=== PATIENT | female | born 1935 | race Caucasian/White ===

== ENCOUNTER 2019-11-26 14:30 | Outpatient (CLI) | payer MEDICARE, OTHER, SELFPAY ==
--- NOTE | 2019-11-26 14:42 | MM_ITS ---
WS: [id number] BILATERAL DIGITAL SCREENING MAMMOGRAPHY WITH CAD CLINICAL INFORMATION: SCREENING HISTORY: Screening mammogram. No current complaints. COMPARISON: None. TECHNIQUE: Bilateral CC and MLO views. FINDINGS: Scattered fibroglandular densities bilaterally. No suspicious focal mass, asymmetry, calcifications, or architectural distortion. No evidence of malignancy. Vascular calcifications. Secretory calcificat ions. Punctate calcifications. MM/[place] [id number] IMPRESSION: BI-RADS: 2-Benign FOLLOW UP: 1 Year Follow-up Recommend return to annual screening mammography.
== END 2019-11-26 14:31 | disposition home or self-care (01) ==
LOC: RADSHAW 14:41
PROVIDERS: PCP Family Medicine; Visit Provider Family Medicine
DX: Z12.31 Encounter for screening mammogram for malignant neoplasm of breast (principal)
CPT/HCPCS: 77067

== ENCOUNTER 2019-12-14 21:31 | Emergency (ER) | payer MEDICARE, OTHER, SELFPAY ==
--- NOTE | 2019-12-14 21:43 | XRR_ITS ---
PROCEDURE INFORMATION: Exam: XR Chest, 1 View Exam date and time: 12/14/2019 10:22 PM Age: 84 years old Clinical indication: Chest pain; Type not specified; Additional info: Cp TECHNIQUE: Imaging protocol: XR of the chest Views: 1 view. COMPARISON: CR Chest 2 views* [id number] 08/30/2018 11:57 AM FINDINGS: Lungs: Unchanged hyperinflation with mild fibrosis. The vascularity is within normal limits. No consolidation. Pleural space: Unremarkable. No pleural effusion. No pneumothorax. Heart/Mediastinum: Unremarkable. No cardiomegaly. Bones/joints: No acute abnormality. XR/XR chest 1V portable [id number] IMPRESSION: No acute findings.
--- NOTE | 2019-12-14 21:43 | ECG_ITS ---
[facility] Test Date: 2019-12-14 Pat Name: Yvette Goodman Department: Room: Gender: Female Night Monitor: : 1935 Requested By: Greg Olea Order Number: [id number] Vita MD: Christopher Hamilton M.D. Measurements Intervals [place] Rate: 59 P: 6 [place]: 200 QRS: -24 QRSD: 98 T: 44 QT: 411 QTc: 410 Interpretive Statements SINUS BRADYCARDIA POSSIBLE ANTERIOR MYOCARDIAL INFARCTION [30 ms Q WAVE IN V3/V4, OR R < 0.2 mV IN V4], OF INDETERMINATE AGE Compared to ECG 03/14/2016 14:53:27 Myocardial infarct finding now present Sinus rhythm no longer present Electronically Signed On 12-15-2019 18:11:00 CDT by Christopher Hamilton M.D. [id number]
[2019-12-14 21:45] VITALS: BP 152/82; PULSE 58; RESP 18; TEMP 36.7; O2SAT 96; BMI 33.2
[2019-12-14 22:12] LABS: Basophils % 0.7 %; Eosinophils # 0.4 10^3/uL (0.0-0.8); Eosinophils % 6.3 %; Hematocrit 40.4 % (37.0-47.0); Hemoglobin 13.4 g/dL (11.5-15.3); Lymphocytes # 1.9 10^3/uL (0.8-4.8); Lymphocytes % 33.7 %; Mean Corpuscular HGB Conc 33.2 g/dL (30.0-36.0); Mean Corpuscular Volume 96.4 fL (81-99); Mean Platelet Volume 10.3 fL (7.4-10.4); Monocytes # 0.5 10^3/uL (0.2-0.9); Monocytes % 8.5 %; Neutrophils # 2.81 10^3/uL (1.8-7.7); Neutrophils % 50.6 %; Nucleated Red Blood Cells % 0 %; Platelet Count 183 10^3/cmm (130-400); Red Blood Count 4.19 10^6/uL (4.1-5.3); Red Cell Distribution Width 12.2 % (12.1-15.1); White Blood Count 5.6 10^3/uL (4.0-10.0)
[2019-12-14 22:30] LABS: Troponin(5th) Baseline 10 ng/L (0-10)
[2019-12-14 22:39] LABS: Alanine Aminotransferase 11 U/L (0-33); Albumin Level 4.3 g/dL (3.5-5.2); Alkaline Phosphatase 65 IU/L (35-105); Anion Gap 14.3 (5-19); Aspartate Amino Transferase 22 U/L (0-32); Blood Urea Nitrogen 29 mg/dL (8-23); Calcium 9.8 mg/dL (8.5-10.5); Carbon Dioxide 28 mmol/L (22-29); Chloride 102 mmol/L (98-107); Glucose 109 mg/dL (65-115); NT Pro B Type Natriuretic Pept 314 pg/mL (0-450); Osmolality Calculated 288 mOsm/kg (285-295); Potassium 4.3 mmol/L (3.5-5.1); Sodium 140 mmol/L (136-145); Total Bilirubin 0.8 mg/dL (0.15-1.2); Total Protein 7.3 g/dL (6.6-8.7)
[2019-12-14 23:12] VITALS: BP 153/83; PULSE 53; RESP 12; O2SAT 94
--- NOTE | 2019-12-14 23:43 | ECG_ITS ---
[facility] Test Date: 2019-12-15 Pat Name: Yvette Goodman Department: Room: Gender: Female Tire Layer: : 1935 Requested By: Greg Olea Order Number: [id number] Vita MD: Christopher Hamilton M.D. Measurements Intervals [place] Rate: 52 P: 50 [place]: 207 QRS: -24 QRSD: 87 T: 48 QT: 428 QTc: 399 Interpretive Statements SINUS BRADYCARDIA LOW QRS VOLTAGE IN PRECORDIAL LEADS [QRS DEFLECTION < 1.0 mV IN CHEST LEADS] POSSIBLE ANTERIOR MYOCARDIAL INFARCTION , OF INDETERMINATE AGE [30 ms Q WAVE IN V3/V4, OR R < 0.2 mV IN V4] Compared to ECG 12/14/2019 21:49:46 Low QRS voltage now present Myocardial infarct finding still present Electronically Signed On 12-15-2019 18:14:51 CDT by Christopher Hamilton M.D. [id number]
[2019-12-15 00:21] LABS: D Dimer 0.42 ug/mIFEU (0-0.59)
[2019-12-15 00:24] LABS: Troponin 5 2HR 9.27 ng/L (0-10)
[2019-12-15 00:31] LABS: Troponin 5 2HR Delta -0.73 ABS# (0-10)
[2019-12-15 00:57] VITALS: BP 160/79; PULSE 59; RESP 16; TEMP 37; O2SAT 98
[2019-12-15 01:20] VITALS: BP 126/71; PULSE 57; RESP 16; O2SAT 100
--- NOTE | 2019-12-15 17:45 | ED_ITS ---
HPI - Chest Pain General: Chief Complaint: Chest Pain Stated Complaint: pressure in chest/ little sharp pain Time Seen by Provider: 12/14/19 22:25 History of Present Illness: HPI narrative: 84-year-old female with a history of PE, on Xarelto, presents with intermittent chest pain to the substernal and left chest. It is somewhat reproducible, but not really she is not had much shortness of breath. No significant cough or fever. She does not have a history of coronary disease, but relates a strong family history of heart disease in general. MD complaint: chest pain Pertinent past history: other (HTN, PE) Onset (ago): hour(s) Timing of current episode: episodic Prior episodes: Yes Onset: during rest Pain location: substernal and left chest Pain radiation: none Severity: moderate Quality: sharp Relieving factors: nothing Exacerbating factors: nothing Associated symptoms: Reports dyspnea (mild on and off); Deny fever(s), leg edema, syncope or vomiting Treatment prior to arrival: none Review of Systems Const: Denies: fever(s) Eyes: Denies: change in vision ENMT: Denies: swelling of lips/tongue, post nasal drip or sinus pain Card: Denies: syncope Resp: Reports: dyspnea (mild on and off) GI: Denies: vomiting : Denies: dysuria or hematuria Musc: Denies: neck pain, joint redness or joint warmth Skin/Breast: Denies: rash, pruritus or erythema Neuro: Denies: headache(s) or seizure-like activity Psych: Denies: anxiety Physical Exam Const: GENERAL APPEARANCE: well developed ORIENTATION/CONSCIOUSNESS: Yes oriented to person, Yes oriented to place and Yes oriented to time HENMT: COMMON NORMALS: normocephalic, external ears normal and Normal external nose present HEAD & SCALP: normocephalic FACE & SINUS: normal facial exam NOSE: Normal external nose present and No nasal discharge present EXTERNAL EAR: Yes external ears normal Eye: COMMON NORMALS: Equal, round and reactive pupils present, EOMs intact bilaterally and conjunctivae normal EYELID: eyelids normal CONJUNCTIVA: Yes conjunctivae normal PUPIL: Yes Equal, round and reactive pupils present Neck/C-Spine: COMMON NORMALS: full ROM GENERAL: No tracheal deviation Chest: COMMONS NORMALS: normal inspection of the chest CHEST: No tenderness Resp: COMMON NORMALS: clear to auscultation bilaterally EFFORT & INSPECTION: No tachypneic, No respiratory distress, No retractions, No uses accessory muscles and No tracheal deviation AUSCULTATION: clear to auscultation bilaterally, no rhonchi, no wheezes and lung sounds not diminished Cardio: COMMON NORMALS: regular rate and regular rhythm RATE: regular rate RHYTHM: regular rhythm HEART SOUNDS: no murmurs PERIPHERAL PULSES: radial pulses present GI: INSPECTION: No abdominal distension AUSCULTATION: No Hyperactive bowel sounds present and No Hypoactive bowel sounds present PALPATION: No Guarding due to palpation present (GI) and No Rigid due to palpation PERCUSSION: no dullness to percussion and no tympanic to percussion Neuro: SENSORIUM/ORIENTATION: Yes oriented to person, Yes oriented to place and Yes oriented to time Psych: COMMON NORMALS: mental status grossly normal Skin: COMMON NORMALS: no rashes or lesions noted GENERAL SKIN EXAM: no rashes or lesions noted Course Vital Signs: Vital signs: Vital Signs Temperature 98.6 F 12/15/19 00:57 Pulse Rate 57 L 12/15/19 01:20 Respiratory Rate 16 12/15/19 01:20 Blood Pressure 126/71 12/15/19 01:20 Pulse Oximetry 100 12/15/19 01:20 MDM - Chest Pain MDM Narrative: Medical decision making narrative: 84-year-old lady with intermittent sharpish chest pain. She has no prior history of coronary disease. She does have hypertension. She has a history of PE, and is on anticoagulants. She has been taking them faithfully. She does have some renal insufficiency. Her EKG showed no ST changes. Her troponin did not elevate at 2 hours. Her pain was essentially resolved. This was without treatment. She is not hypoxic and non-tachycardic her d-dimer was negative. With improvement in her pain, her being already treated for PE, and no elevation in her troponin, and think she can go home she knows to return for any return of her symptoms. Lab Data: Labs: Lab Results 12/14/19 12/14/19 12/14/19 Range/Units 22:03 22:03 22:03 WBC 5.6 (4.0-10.0) 10^3/ uL RBC 4.19 (4.1-5.3) 10^6/u L Hgb 13.4 (11.5-15.3) g/dL Hct 40.4 (37.0-47.0) % MCV 96.4 (81-99) fL MCH 32.0 (28.0-34.0) pg MCHC 33.2 (30.0-36.0) g/dL RDW 12.2 (12.1-15.1) % Plt Count 183 (130-400) 10^3/c mm MPV 10.3 (7.4-10.4) fL Neut % (Auto) 50.6 % Lymph % (Auto) 33.7 % [place] % (Auto) 8.5 % Eos % (Auto) 6.3 % Baso % (Auto) 0.7 % Neut # (Auto) 2.81 (1.8-7.7) 10^3/u L Lymph # (Auto) 1.9 (0.8-4.8) 10^3/u L [place] # (Auto) 0.5 (0.2-0.9) 10^3/u L Eos # (Auto) 0.4 (0.0-0.8) 10^3/u L Baso # (Auto) 0.0 (0.0-0.1) 10^3/u L Nucleated RBC % (a uto) 0 % Nucleated RBCs # 0.0 /100WBC D-Dimer (0-0.59) ug/mIFE U Sodium 140 (136-145) mmol/L Potassium 4.3 (3.5-5.1) mmol/L Chloride 102 (98-107) mmol/L Carbon Dioxide 28 (22-29) mmol/L Anion Gap 14.3 (5-19) BUN 29 H (8-23) mg/dL Creatinine 1.6 H (0.5-0.9) mg/dL GFR Calculation Not Reportable Glucose 109 (65-115) mg/dL Calculated Osmolal ity 288 (285-295) mOsm/k g Calcium 9.8 (8.5-10.5) mg/dL Total Bilirubin 0.8 (0.15-1.2) mg/dL AST 22 (0-32) U/L ALT 11 (0-33) U/L Alkaline Phosphata se 65 (35-105) IU/L Troponin T Baselin e 10 (0-10) ng/L Troponin T 120 Min [place] (0-10) ng/L Delta Troponin T (0-10) ABS# NT-Pro-B Natriuret Pep 314 (0-450) pg/mL Total Protein 7.3 (6.6-8.7) g/dL Albumin 4.3 (3.5-5.2) g/dL Globulin 3.0 (1.3-4.6) g/dL 12/14/19 12/14/19 Range/Units 22:03 23:59 WBC (4.0-10.0) 10^3/ uL RBC (4.1-5.3) 10^6/u L Hgb (11.5-15.3) g/dL Hct (37.0-47.0) % MCV (81-99) fL MCH (28.0-34.0) pg MCHC (30.0-36.0) g/dL RDW (12.1-15.1) % Plt Count (130-400) 10^3/c mm MPV (7.4-10.4) fL Neut % (Auto) % Lymph % (Auto) % [place] % (Auto) % Eos % (Auto) % Baso % (Auto) % Neut # (Auto) (1.8-7.7) 10^3/u L Lymph # (Auto) (0.8-4.8) 10^3/u L [place] # (Auto) (0.2-0.9) 10^3/u L Eos # (Auto) (0.0-0.8) 10^3/u L Baso # (Auto) (0.0-0.1) 10^3/u L Nucleated RBC % (a uto) % Nucleated RBCs # /100WBC D-Dimer 0.42 (0-0.59) ug/mIFE U Sodium (136-145) mmol/L Potassium (3.5-5.1) mmol/L Chloride (98-107) mmol/L Carbon Dioxide (22-29) mmol/L Anion Gap (5-19) BUN (8-23) mg/dL Creatinine (0.5-0.9) mg/dL GFR Calculation Glucose (65-115) mg/dL Calculated Osmolal ity (285-295) mOsm/k g Calcium (8.5-10.5) mg/dL Total Bilirubin (0.15-1.2) mg/dL AST (0-32) U/L ALT (0-33) U/L Alkaline Phosphata se (35-105) IU/L Troponin T Baselin e (0-10) ng/L Troponin T 120 Min [place] 9.27 (0-10) ng/L Delta Troponin T -0.73 L (0-10) ABS# NT-Pro-B Natriuret Pep (0-450) pg/mL Total Protein (6.6-8.7) g/dL Albumin (3.5-5.2) g/dL Globulin (1.3-4.6) g/dL Discharge Plan Discharge Patient Disposition: Home Clinical Impression: Chest pain Qualifiers: Chest pain type: unspecified Qualified Code(s): R07.9 - Chest pain, unspecified Condition: Stable Discharge Orders: Discharge Order (Routine); Ordered 12/15/19 Ordered By: Greg Atkinson Referrals: Miguel Samayoa Jr, MD [Primary Care Provider] - 1-3 days Discharge Diet: Advance as tolerated Discharge Activity: Increase activity as tolerated Patient Instructions: Chest Pain (ED) Activity Restrictions/Additional Instructions: Return for repeated episodes of chest pain, worsening shortness of breath, cough, fever, sputum production, other concerning symptoms. See your doctor the beginning of this week. There may be additional tests they wish performed. Discharge Date/Time: 12/15/19 01:22 Coding Level of Care Code ED Astro Technician for Radha Barr
== END 2019-12-15 01:22 | disposition home or self-care (01) ==
PROVIDERS: Emergency Provider Emergency Medicine; PCP Family Medicine
DX: R07.9 Chest pain, unspecified (principal)
CPT/HCPCS: 12345; 36415; 71045; 80053; 83880; 84484; 85025; 85378; 93005; 99283; 99284

== ENCOUNTER 2020-05-27 12:19 | Outpatient (CLI) | payer MEDICARE, OTHER, SELFPAY ==
[2020-05-27] MEDS: iohexol 300 mg/mL 50 mL Btl PO (12:33)
--- NOTE | 2020-05-27 14:00 | CT_ITS ---
WS: [id number] CT PELVIS WITH CONTRAST. HISTORY: K62.89 - Other specified diseases of anus and rectum TECHNIQUE: Contiguous imaging is performed of the pelvis with contrast. Coronal and sagittal reformat s are reviewed. All CT scans at [facility] use at least one of these dose optimization te chniques: automated exposure control; mA and/or kV adjustment per patient size (includes targeted exa ms where dose is matched to clinical indication); or iterative reconstruction. DLP: 1553.3 mGycm Contrast: Visipaque 95 cc IV. COMPARISON: None available. Moderate atherosclerotic plaque within the infrarenal aorta to the iliac arteries. No adenopathy is i dentified. There is a very small shoddy periaortic lymph nodes. Moderate fecal retention. Extensive diverticular disease within the descending and sigmoid colon. At the level of the rectum there is increased soft tissue extending towards the anus. Increased soft tis edvin towards the anus measures 4.4 x 4.7 cm. There is an additional soft tissue nodule in the LEFT per ineum measuring 1.6 cm. No adjacent adenopathy or fluid. There is no obstruction. CT/CT pelvis w con* [id number] IMPRESSION: 1. Increased soft tissue towards the anus and perineum. This should be visuall y apparent. Increased soft tissue along the posterior rectum and anus and exten ding into the perineum. Cannot exclude neoplasm. 2. No ascites or adenopathy. 3. Extensive diverticular disease in the distal and sigmoid colon.
[2020-05-27 14:06] LABS: Blood Urea Nitrogen 26 mg/dL (8-23)
[2020-05-27] MEDS: iodixanol 320 mg/mL 100mL Btl IV (14:14)
== END 2020-05-27 12:20 | disposition home or self-care (01) ==
LOC: RADWPI 12:24
PROVIDERS: PCP Family Medicine; Visit Provider Surgery
DX: K62.89 Other specified diseases of anus and rectum (principal); K57.90 Diverticulosis of intestine, part unspecified, without perforation or abscess without bleeding
CPT/HCPCS: 72193; 82565; 84520; Q9967

== ENCOUNTER → 2020-06-04 11:51 | Outpatient (BNVA) | payer MEDICARE, OTHER, SELFPAY | PROVIDERS: PCP Family Medicine; Visit Provider Surgery | DX: K57.90 Diverticulosis of intestine, part unspecified, without perforation or abscess without bleeding (principal) | CPT/HCPCS: 87635 ==

== ENCOUNTER 2020-06-09 10:31 | Day surgery (SDC) | payer MEDICARE, OTHER, SELFPAY ==
[2020-06-08 13:46] VITALS: BMI 34.5
[2020-06-09 11:00] VITALS: BP 157/79; PULSE 69; RESP 18; TEMP 36.6; O2SAT 98
[2020-06-09] MEDS: sodium chloride 0.9% 1,000 ML 30 ML IV (11:03)
--- NOTE | 2020-06-09 12:18 | W.PM.OPSUD ---
Surgery/Procedure H&P Update DATE OF PROCEDURE: June 09, 2020 DATE H&P PERFORMED: 05/25/20 H&P UPDATE INFORMATION: I have reviewed H&P completed within last 30 days, I have examined patient prior to procedure and No changes to prior documentation PREOP DIAGNOSIS: diagnostic PLANNED PROCEDURE: Operation Date: 06/09/20 11:30 Proposed Procedures p flex Sigmoidoscopy 60260 K57.90(Not Applicable) - John Esquivel MD
--- NOTE | 2020-06-09 12:48 | W.PM.OPSUD ---
Surgery/Procedure H&P Update DATE OF PROCEDURE: June 09, 2020 DATE H&P PERFORMED: 05/25/20 H&P UPDATE INFORMATION: I have reviewed H&P completed within last 30 days, I have examined patient prior to procedure and No changes to prior documentation PREOP DIAGNOSIS: diagnostic PLANNED PROCEDURE: Operation Date: 06/09/20 11:30 Proposed Procedures p flex Sigmoidoscopy 50889 K57.90(Not Applicable) - John Esquivel MD
[2020-06-09 13:08] VITALS: BP 116/61; PULSE 64; RESP 16; TEMP 36.2; O2SAT 98
--- NOTE | 2020-06-09 13:23 | ANES.PREANE2 ---
Pre-Anesthetic Assessment Pre-Anesthetic Assessment: Height/Weight: Height 1.52 m Weight 80.286 kg Temp Pulse Resp BP Pulse Ox 97.1 F L 64 16 116/61 98 06/09/20 13:08 06/09/20 13:08 06/09/20 13:08 06/09/20 13:08 06/09/20 13:08 Preop Diagnosis: diagnostic Proposed Procedure: Operation Date: 06/09/20 11:30 Proposed Procedures p flex Sigmoidoscopy 71759 K57.90(Not Applicable) - John Esquivel MD Was Beta Juan taken within 24 hours: Yes Last intake: Intake Last Liquid Date 06/08/20 Last Liquid Time 21:00 Last Solid Date 06/07/20 Last Solid Time 20:00 Social: Social History: No alcohol and No tobacco Exam: Pre-Anes Outpt Exam: alert, oriented x 3, clear to auscultation bilaterally and regular rate & rhythm Airway: Submandibular: WNL Cervical ROM: WNL MP: 2 Dentition: False CV/HEM: CV/HEM: DVT (PE) Metabolic: Metabolic: Morbid obesity and Thyroid Neuropsych: Neuropsych: Depression Anesthetic Plan: ASA status: 3 Anesthesia: MAC Risk of > 500 ml blood loss (7ml/kg in children): No Meds/Allergies Current Medications: Current Medications Generic Name Dose Route Start Last Admin Trade Name Freq PRN Reason Stop Dose Admin Sodium Chloride 1,000 mls @ 30 ml s/hr 06/09/20 10:45 06/09/20 11:03 Sodium Chloride 0.9% IV 06/10/20 10:44 30 mls/hr .Q24H VERITO Administration PFSH Anesthesia PFSH: Medical History (Updated 05/25/20 @ 11:13 by John Esquivel MD) Depression Diverticulosis History of pulmonary embolism Hyperlipidemia Hypertension Hypothyroidism Surgical History (Updated 05/25/20 @ 11:13 by John Esquivel MD) History of hysterectomy Status post colonoscopy (~2019) Social History Smoking and tobacco status: never smoked Alcohol intake: never Special era needs: No Data Anesthesia Cardiac Studies: No Data to Display
[2020-06-09 13:35] VITALS: BP 139/77; PULSE 60; RESP 16; O2SAT 98
--- NOTE | 2020-06-09 16:36 | ANE.PACU2 ---
Inpatient post-anesthesia follow up: Airway intact: Yes Vital signs: Temperature 97.1 F Pulse Rate 60 Respiratory Rate 16 Blood Pressure 139/77 Pulse Oximetry 98 Oxygen Delivery Me thod Room Air Oxygen Flow Rate Fraction of Inspir ed Oxygen Hydration adequate: Yes Nausea and vomiting: No Pain level: 1 Mental status: Baseline
== END 2020-06-09 13:50 | disposition home or self-care (01) ==
PROVIDERS: PCP Family Medicine; Visit Provider Surgery
PROC: 0DJD8ZZ Inspection of Lower Intestinal Tract, Via Natural or Artificial Opening Endoscopic (ICD-10-PCS; CPT 45330; principal; 2020-06-09 11:30)
DX: K62.89 Other specified diseases of anus and rectum (principal); K57.30 Diverticulosis of large intestine without perforation or abscess without bleeding; K64.8 Other hemorrhoids; F32.9 Major depressive disorder, single episode, unspecified; E78.5 Hyperlipidemia, unspecified; I10 Essential (primary) hypertension; E03.9 Hypothyroidism, unspecified; Z86.718 Personal history of other venous thrombosis and embolism; E66.01 Morbid (severe) obesity due to excess calories; Z68.34 Body mass index [BMI] 34.0-34.9, adult
CPT/HCPCS: 12345; 45330; J2704; J7030

== ENCOUNTER 2021-08-20 09:23 | Outpatient (CLI) | payer MEDICARE, OTHER, SELFPAY ==
--- NOTE | 2021-08-20 09:45 | MM_ITS ---
WS: [id number] BILATERAL SCREENING 3D TOMOSYNTHESIS DIGITAL MAMMOGRAM WITH CAD HISTORY: SCREENING COMPARISON: 11/26/2019 and 06/18/2018 Bilateral CC and MLO views submitted. Limited evaluation RIGHT breast. Pectoralis muscle not included in the MLO projection. Computer aided detection analyzed. Breast composition: There are scattered areas of fibroglandular density. No suspicious masses, microc alcifications or architectural distortion. Benign calcifications in each breast. MM/[place] [id number] IMPRESSION: BI-RADS: 2-Benign FOLLOW UP: 1 Year Follow-up
== END 2021-08-20 09:24 | disposition home or self-care (01) ==
LOC: RAD 09:41
PROVIDERS: PCP Family Medicine; Visit Provider Family Medicine
DX: Z12.31 Encounter for screening mammogram for malignant neoplasm of breast (principal)
CPT/HCPCS: 77063; 77067

== ENCOUNTER 2021-12-06 11:55 | Outpatient (CLI) | payer MEDICARE, OTHER, SELFPAY ==
--- NOTE | 2021-12-06 11:45 | USCV_ITS ---
Yvette Goodman Age: 86 Gender: F : 1935 Exam Date: 12/06/2021 12:50 Ordering Phys: Otis Torres DO Technologist: ANGEL [place] [facility] [place]: systolic BP: 128 / 78 HR: 65 Rhythm: Sinus Technical Quality: Adequate MEASUREMENTS (Male / Female) Normal Values 2D ECHO LV Diastolic Diameter PLAX 4.2 cm 4.2 - 5.9 / 3.9 - 5.3 cm LV Systolic Diameter PLAX 2.5 cm IVS Diastolic Thickness 1.3 cm 0.6 - 1.0 / 0.6 - 0.9 cm IVS Systolic Thickness 1.6 cm LVPW Diastolic Thickness 1.2 cm 0.6 - 1.0 / 0.6 - 0.9 cm LVPW Systolic Thickness 1.8 cm LVOT Diameter 2.1 cm LV Ejection Fraction 2D Teich 72.3 % LV Ejection Fraction MOD 2C 47.9 % LV Ejection Fraction 2C AL 49.0 % LA Diameter 3.4 cm LA Width 3.2 cm LA Height 4.2 cm RA Width 3.4 cm RA Height 4.2 cm Aorta at Sinotubular Diameter 3.2 cm IVC Diameter 1.9 cm M-MODE MV E Point Septal Separation 0.3 cm DOPPLER AV Peak Velocity 116.0 cm/s LVOT Peak Velocity 107.0 cm/s AV Area Cont Eq vti 2.9 cm squared AV Area Cont Eq pk 3.2 cm squared MV Peak Velocity 142.0 cm/s MV Area PHT 4.3 cm squared Mitral E to A Ratio 0.7 MV E' Velocity 39.5 cm/s Mitral E to MV E' Ratio 9.1 Mitral E to LV E' Lateral Ratio 10.4 Mitral E to LV E' Septal Ratio 8.2 TR Peak Velocity 247.3 cm/s TR Peak Gradient 24.5 mmHg Right Atrial Pressure 3.0 mmHg Pulmonary Artery Systolic Pressu 27.5 mmHg PV Peak Velocity 76.0 cm/s RV Acceleration Time 0.1 s RV Ejection Time 0.4 s RV AcT/ET 0.3 FINDINGS Left Ventricle Normal left ventricular size. LV systolic function is normal with EF of 55-60%. No regional wall motion abnormalities. Grade 1 diastolic dysfunction. Right Ventricle The right ventricle is normal in size and function. Right Atrium The right atrium is normal in size. Normal RA pressure. Left Atrium The left atrium is normal in size. Mitral Valve Mild mitral annular calcification is seen. Mild mitral regurgitation. Aortic Valve Structurally normal aortic valve without significant sclerosis or stenosis. There is no aortic regurgitation. Tricuspid Valve Mild tricuspid regurgitation. Normal pulmonary artery systolic pressure. Pulmonic Valve Not well-visualized. Pericardium Normal pericardium without effusion. Aorta Normal ascending aorta dimension. IVC CONCLUSIONS LV systolic function is normal with EF 55 to 60%. Grade 1 diastolic dysfunction. Mild mitral annular calcification is seen. Mild mitral regurgitation. Mild tricuspid regurgitation. No comparison studies are available Bam Posada MD (Electronically Signed) Final Date: 11 December 2021 13:32 S
== END 2021-12-06 11:56 | disposition home or self-care (01) ==
PROVIDERS: PCP Family Medicine; Visit Provider Electrodiagnostic Medicine
DX: R01.1 Cardiac murmur, unspecified (principal); I08.1 Rheumatic disorders of both mitral and tricuspid valves
CPT/HCPCS: 93306

== ENCOUNTER 2022-12-28 15:09 | Outpatient (CLI) | payer MEDICARE, SELFPAY ==
--- NOTE | 2022-12-28 15:17 | MM_ITS ---
WS: [id number] SCREENING DIGITAL BREAST TOMOSYNTHESIS MAMMOGRAM WITH CAD HISTORY: SCREENING COMPARISON: 08/20/2021 and 11/26/2019 and 06/18/2018 Bilateral CC and MLO with tomosynthesis and synthetic mammography submitted. Computer aided detection analyzed. Breast composition: There are scattered areas of fibroglandular density. Scattered breast arterial ca lcifications and benign round calcifications within each breast Well-circumscribed 9 mm dense mass noted in the LEFT axillary tail. This was present on the prior ronal dies and thought to be a lymph node but has slightly increased in size with loss of the normal fatty hilum. This needs to be evaluated further. IMPRESSION: MM/[place] [id number] BI-RADS: 0-Incomplete: Need additional imaging evaluation FOLLOW UP: Need Additional Imaging Recommendation: LEFT breast ultrasound limited to the axillary tail. Favor this is probably within the axillary tail. Cannot localize on the CC projection due to its posterior position. We'll attempt to identify by ultrasound. May need a dditional mammographic imaging if we cannot visualize by ultrasound.
== END 2022-12-28 15:10 | disposition home or self-care (01) ==
LOC: RAD 15:13 → MOBLMAM 15:16 → RAD 15:17
PROVIDERS: PCP Family Medicine; Visit Provider Electrodiagnostic Medicine
DX: Z12.31 Encounter for screening mammogram for malignant neoplasm of breast (principal)
CPT/HCPCS: 77063; 77067

== ENCOUNTER 2023-01-31 10:10 | Outpatient (CLI) | payer MEDICARE, OTHER, SELFPAY ==
--- NOTE | 2023-01-31 10:22 | US_ITS ---
WS: [id number] ULTRASOUND LEFT BREAST HISTORY: ABNORMAL MAMMO COMPARISON: 12/28/2022 TECHNIQUE: 2-D and Doppler. High density nodule seen on mammography in the LEFT axillary tail is identified by ultrasound. This n odule is hypoechoic with mildly heterogeneous contents measuring 9 x 10 x 8 mm. There is minimal thro ugh transmission. I suspect there is probably a tract extending through the subcutaneous soft tissue. Due to the ultrasound appearance this is probably a sebaceous cyst or epidermoid. Does not have the appearance of a lymph node. IMPRESSION: US/US breast LT limited* [id number] BI-RADS: 3-Probably Benign FOLLOW-UP: 6 Month Follow-up Well-circumscribed hypoechoic in the LEFT axillary tail is identified also by u ltrasound. This is most likely an epidermoid or sebaceous cyst. Does not have a typical appearance for a lymph node. Typically epidermoid or sebaceous cyst or not biopsied due to the significant inflammatory reaction they may in site. Vizcarra ggest 6-month ultrasound follow-up. If this nodule becomes larger in size prior to 6 months or becomes palpable ultrasound can be obtained earlier.
== END 2023-01-31 10:11 | disposition home or self-care (01) ==
PROVIDERS: PCP Electrodiagnostic Medicine; Visit Provider Electrodiagnostic Medicine
DX: R92.8 Other abnormal and inconclusive findings on diagnostic imaging of breast (principal)
CPT/HCPCS: 76642

== ENCOUNTER → 2023-02-21 09:01 | Outpatient (BNVA) | payer MEDICARE, OTHER, SELFPAY | PROVIDERS: PCP Electrodiagnostic Medicine; Visit Provider Podiatrist Foot & Ankle Surgery | DX: L60.3 Nail dystrophy (principal); M20.41 Other hammer toe(s) (acquired), right foot; M20.42 Other hammer toe(s) (acquired), left foot; I73.9 Peripheral vascular disease, unspecified | CPT/HCPCS: 11721; 99203 ==

== ENCOUNTER 2023-03-28 20:00 | Outpatient (CLI) | payer MEDICARE, OTHER, SELFPAY | END 2023-03-28 20:01 | disposition home or self-care (01) | LOC: SLEEP 03-29 05:24 | PROVIDERS: PCP Electrodiagnostic Medicine; Visit Provider Electrodiagnostic Medicine | DX: G47.33 Obstructive sleep apnea (adult) (pediatric) (principal) | CPT/HCPCS: 95810 ==

== ENCOUNTER 2023-05-24 15:14 | Outpatient (CLI) | payer MEDICARE, OTHER, SELFPAY ==
--- NOTE | 2023-05-24 15:21 | XR_ITS ---
WS: [id number] DEXA (DUAL ENERGY X-RAY ABSORPTIOMETRY) Bone mineral density was performed using a [employer] machine. HISTORY: POSTMENOPAUSAL COMPARISON: None available. Lumbar spine BMD (L1-L4): 1.390 T score: 1.6 Z score: 3.2 Total hip BMD: Left: 0.986 g/cm2. T score: -0.2 Z score: 1.9 Right: 0.911 g/cm2. T score: -0.8 Z score: 1.3 10 year probability of a major osteoporotic fracture is 17.7%. IMPRESSION: NORMAL BONE MINERAL DENSITY based upon the WHO classification for females.
== END 2023-05-24 15:15 | disposition home or self-care (01) ==
LOC: RAD 15:15
PROVIDERS: PCP Electrodiagnostic Medicine; Visit Provider Electrodiagnostic Medicine
DX: Z78.0 Asymptomatic menopausal state (principal)
CPT/HCPCS: 77080

== ENCOUNTER → 2023-05-31 08:05 | Outpatient (BNVA) | payer MEDICARE, OTHER, SELFPAY | PROVIDERS: PCP Electrodiagnostic Medicine; Visit Provider Podiatrist Foot & Ankle Surgery | DX: L60.3 Nail dystrophy (principal); I73.9 Peripheral vascular disease, unspecified; L84 Corns and callosities | CPT/HCPCS: 11055; 11721 ==

== ENCOUNTER 2023-07-10 14:00 | Emergency (ER) | payer MEDICARE, OTHER, SELFPAY ==
[2023-07-10 14:10] VITALS: BP 190/100; PULSE 78; RESP 18; TEMP 36.7; O2SAT 97; BMI 33.2
--- NOTE | 2023-07-10 17:14 | XRR_ITS ---
PROCEDURE INFORMATION: Exam: XR Chest Exam date and time: 07/10/2023 5:58 PM Age: 88 years old Clinical indication: Chest wall pain; Additional info: HTN TECHNIQUE: Imaging protocol: Radiologic exam of the chest. Views: 1 view. COMPARISON: CR XR chest 1V portable [id number] 12/14/2019 10:10 PM FINDINGS: Lungs: Unremarkable. No consolidation or mass. Pleural spaces: Unremarkable. No pleural effusion. No pneumothorax. Heart/Mediastinum: Unremarkable. No cardiomegaly. Bones/joints: Unremarkable. XR/XR chest 1V portable [id number] IMPRESSION: No acute findings.
--- NOTE | 2023-07-10 17:54 | ECG_ITS ---
[facility] Test Date: 2023-07-10 Pat Name: Yvette Goodman Department: Room: Gender: Female Traffic Safety Administrator: : 1935 Requested By: Denys Moe Order Number: [id number] Vita MD: Tobias Mcintyre M.D. Measurements Intervals [place] Rate: 64 P: 46 MD: 187 QRS: -24 QRSD: 89 T: 17 QT: 397 QTc: 411 Interpretive Statements SINUS RHYTHM WITH OCCASIONAL SUPRAVENTRICULAR PREMATURE COMPLEXES LOW QRS VOLTAGE IN PRECORDIAL LEADS [QRS DEFLECTION < 1.0 mV IN CHEST LEADS] POSSIBLE ANTERIOR MYOCARDIAL INFARCTION , OF INDETERMINATE AGE [30 ms Q WAVE IN V3/V4, OR R < 0.2 mV IN V4] Compared to ECG 12/15/2019 00:05:00 Sinus bradycardia no longer present Myocardial infarct finding still present Electronically Signed On 07-11-2023 23:00:04 CDT by Tobias Mcintyre M.D. [id number]
[2023-07-10 18:37] VITALS: BP 207/108; PULSE 87; RESP 16; O2SAT 97
[2023-07-10 18:39] LABS: Basophils % 0.5 %; Eosinophils # 0.4 10^3/uL (0.0-0.8); Eosinophils % 6.5 %; Lymphocytes # 1.8 10^3/uL (0.8-4.8); Lymphocytes % 27.8 %; Mean Corpuscular HGB Conc 33.3 g/dL (30-55); Mean Corpuscular Hemoglobin 32.8 pg (27-33); Mean Corpuscular Volume 98.5 fl (85-98); Mean Platelet Volume 10.5 fL (7.4-10.4); Monocytes # 0.5 10^3/uL (0.2-0.9); Monocytes % 8.3 %; Neutrophils # 3.68 10^3/uL (1.8-7.7); Neutrophils % 56.4 %; Nucleated Red Blood Cells % 0 %; Platelet Count 173 10^3/cmm (157-399); Red Blood Count 3.96 10^6/uL (3.85-5.65); Red Cell Distribution Width 12.2 % (12.1-15.1); White Blood Count 6.51 10^3/uL (3.29-11.43)
[2023-07-10 18:42] LABS: Add Urine Microscopic? NO; Charge for UA Resulting for Rev
[2023-07-10 18:51] LABS: Bilirubin Urine Neg (Negative); Blood Urine Neg (Negative); Glucose Urine UA Norm (Normal); Ketones Urine Negative (Negative); Leukocyte Esterase Urine Negative (Negative); Nitrate Urine Negative (Negative); Protein Urine Neg (Negative); Sulfosalicylic Acid Urine Negative (Negative); Urine Appearance Clear (CLEAR); Urine Color Light yellow (Yellow); Urobilinogen Urine Norm (Negative); pH Urine 8 (5-7)
[2023-07-10 19:05] VITALS: BP 169/90; PULSE 73; RESP 18; O2SAT 97
[2023-07-10 19:17] LABS: Alanine Aminotransferase 14 U/L (0-33); Albumin Level 3.8 g/dL (3.5-5.2); Alkaline Phosphatase 83 U/L (35-105); Anion Gap 16.3 (5-19); Aspartate Amino Transferase 24 U/L (0-32); Blood Urea Nitrogen 22 mg/dL (8-23); Calcium 9.7 mg/dL (8.5-10.5); Carbon Dioxide 27 mmol/L (22-29); Chloride 103 mmol/L (98-107); Creatinine Clr Calc Pharmacy 30.3172; Globulin 3.2 g/dL (1.3-4.6); Glucose 96 mg/dL (65-115); Osmolality Calculated 297 mOsm/kg (285-295); Potassium 4.3 mmol/L (3.5-5.1); Sodium 142 mmol/L (136-145); Thyroid Stimulating Hormone 4.95 uIU/mL (0.27-4.20)
[2023-07-10] MEDS: hyDRALAzine 20 mg/mL INJ 1 mL IVP (19:26)
[2023-07-10 19:38] VITALS: BP 175/90; PULSE 75; RESP 18; O2SAT 97
--- NOTE | 2023-07-10 19:49 | ED_ITS ---
HPI - General Adult 2 General: Chief complaint: General Medical Stated complaint: evelia, high blood pressure, left arm pain Time Seen by Provider: 07/10/23 17:53 History of Present Illness: Patient presents to the ER with complaints of high blood pressure. Patient says her blood pressure has been 200s over 100s. Patient denies any changes in medicine. Patient does have anxiety and is worried about having a stroke. Patient is currently on amlodipine 5 mg, metoprolol 25 mg,. She is not having any other symptoms other than high blood pressure and worrying. Review of Systems 2 General: Reports: 10 or more systems reviewed and unremarkable except in HPI and below PFSH ED 2 PFSH: Medical History Diverticulosis History of pulmonary embolism Depression Hypertension Hyperlipidemia Hypothyroidism Surgical History Status post colonoscopy (~2019) History of hysterectomy Social History Smoking and tobacco/nicotine status: never used tobacco/nicotine Alcohol intake: never Special era needs: No Physical Exam 2 Const: COMMON NORMALS: no acute distress, average body habitus, patient oriented x3, no limitations, healthy appearing, alert and well nourished HENMT: COMMON NORMALS: normocephalic, atraumatic, hearing grossly normal bilaterally, external ears normal, Normal external nose present, moist oral mucous membranes and oropharynx normal HEAD & SCALP: normocephalic and atraumatic NOSE: Normal external nose present EXTERNAL EAR: Yes external ears normal Neck/C-Spine: COMMON NORMALS: no JVD Chest: COMMONS NORMALS: normal inspection of the chest and normal palpation of entire chest wall Resp: COMMON NORMALS: normal respiratory effort, No retractions, No use of accessory muscles and clear to auscultation bilaterally AUSCULTATION: clear to auscultation bilaterally Cardio: COMMON NORMALS: no JVD, regular rate, regular rhythm, S1 normal heart sound present, S2 normal heart sound present, No gallops present (Cardio), No clicks present (Cardio), No murmurs present (Cardio) and No rub (Cardio) R ATE: regular rate RHYTHM: regular rhythm HEART SOUNDS: S1 normal heart sound present and S2 normal heart sound present GI: COMMON NORMALS: Normal to inspection, nondistended, normoactive bowel sounds present, Soft to palpation, non-tender, No hepatosplenomegaly present and no masses PALPATION: Yes Soft to palpation and Yes No hepatosplenomegaly present Neuro: COMMON NORMALS: patient oriented x3 SENSORIUM/ORIENTATION: Yes alert Course 2 Vital Signs: Vital signs: Vital Signs Temperature 98.1 F 07/10/23 14:10 Pulse Rate 98 07/10/23 21:02 Respiratory Rate 18 07/10/23 21:02 Blood Pressure 187/113 07/10/23 21:02 Pulse Oximetry 97 07/10/23 21:02 Oxygen Delivery Me thod Room Air 07/10/23 14:10 MDM - General Adult Medical Decision Making Patient presented with high blood pressure. Lab work was obtained chest x-ray and EKG, patient was given 20 mg of hydralazine and 0.2 mg of clonidine which brought her blood pressure down to 135/76. Patient be discharged home to follow-up with her PCP Differential Diagnosis Hypertension Medical Records I reviewed the patient's medical records. Lab Data I reviewed the patient's lab results. 07/10/23 18:05 07/10/23 18:05 Radiology Impressions Chest X-Ray 07/10/23 17:14 IMPRESSION: No acute findings. Laboratory Results WBC 6.51 10^3/uL (3.29-11.43) 07/10/23 18:05 RBC 3.96 10^6/uL (3.85-5.65) 07/10/23 18:05 Hgb 13.00 g/dL (11.27-16.99) 07/10/23 18:05 Hct 39.0 % (36-47) 07/10/23 18:05 MCV 98.5 fl (85-98) H 07/10/23 18:05 MCH 32.8 pg (27-33) 07/10/23 18:05 MCHC 33.3 g/dL (30-55) 07/10/23 18:05 RDW 12.2 % (12.1-15.1) 07/10/23 18:05 Plt Count 173 10^3/cmm (157-399) 07/10/23 18:05 MPV 10.5 fL (7.4-10.4) H 07/10/23 18:05 Neut % (Auto) 56.4 % 07/10/23 18:05 Lymph % (Auto) 27.8 % 07/10/23 18:05 Wirt % (Auto) 8.3 % 07/10/23 18:05 Eos % (Auto) 6.5 % 07/10/23 18:05 Baso % (Auto) 0.5 % 07/10/23 18:05 Neut # (Auto) 3.68 10^3/uL (1.8-7.7) 07/10/23 18:05 Lymph # (Auto) 1.8 10^3/uL (0.8-4.8) 07/10/23 18:05 Wirt # (Auto) 0.5 10^3/uL (0.2-0.9) 07/10/23 18:05 Eos # (Auto) 0.4 10^3/uL (0.0-0.8) 07/10/23 18:05 Baso # (Auto) 0.0 10^3/uL (0.0-0.1) 07/10/23 18:05 Nucleated RBC % (auto) 0 % 07/10/23 18:05 Nucleated RBCs # 0.0 /100WBC 07/10/23 18:05 Sodium 142 mmol/L (136-145) 07/10/23 18:05 Potassium 4.3 mmol/L (3.5-5.1) 07/10/23 18:05 Chloride 103 mmol/L (98-107) 07/10/23 18:05 Carbon Dioxide 27 mmol/L (22-29) 07/10/23 18:05 Anion Gap 16.3 (5-19) 07/10/23 18:05 BUN 22 mg/dL (8-23) 07/10/23 18:05 Creatinine 1.2 mg/dL (0.5-0.9) H 07/10/23 18:05 GFR Calculation Not Reportable 07/10/23 18:05 Glucose 96 mg/dL (65-115) 07/10/23 18:05 Calculated Osmolality 297 mOsm/kg (285-295) H 07/10/23 18:05 Calcium 9.7 mg/dL (8.5-10.5) 07/10/23 18:05 Total Bilirubin 1.0 mg/dL (0.15-1.2) 07/10/23 18:05 AST 24 U/L (0-32) 07/10/23 18:05 ALT 14 U/L (0-33) 07/10/23 18:05 Alkaline Phosphatase 83 U/L (35-105) 07/10/23 18:05 Total Protein 7.0 g/dL (6.6-8.7) 07/10/23 18:05 Albumin 3.8 g/dL (3.5-5.2) 07/10/23 18:05 Globulin 3.2 g/dL (1.3-4.6) 07/10/23 18:05 TSH 4.95 uIU/mL (0.27-4.20) H 07/10/23 18:05 Urine Color Light yellow (Yellow) 07/10/23 18:36 Urine Appearance Clear (CLEAR) 07/10/23 18:36 Urine pH 8 (5-7) H 07/10/23 18:36 Ur Specific [place] 1.010 (1.005-1.030) 07/10/23 18:36 Urine Protein Neg (Negative) 07/10/23 18:36 Urine Glucose (UA) Norm (Normal) 07/10/23 18:36 Urine Ketones Negative (Negative) 07/10/23 18:36 Urine Blood Neg (Negative) 07/10/23 18:36 Urine Nitrate Negative (Negative) 07/10/23 18:36 Urine Bilirubin Neg (Negative) 07/10/23 18:36 Prot Sulfosalicylic Acd Negative (Negative) 07/10/23 18:36 Urine Urobilinogen Norm mg/dL (Negative) 07/10/23 18:36 Ur Leukocyte Esterase Negative (Negative) 07/10/23 18:36 All radiology interpretation(s) finalized by discharge EKG Data EKG 1: I personally reviewed and interpreted this EKG as follows: EKG interpretation date: 07/10/23 EKG interpretation time: 17:54 Interpretation: Ventricular rate 64 bpm, AR interval 187, QRS duration 89, QTc of 407, sinus rhythm occasional PVCs Computer generated interpretation: Chest X-Ray 07/10/23 17:14 IMPRESSION: No acute findings. Discharge Plan Discharge Patient Disposition: Home Clinical Impression: Hypertension Qualifiers: Hypertension type: unspecified Qualified Code(s): I10 - Essential (primary) hypertension Condition: Stable Prescriptions: No Action amlodipine 5 mg tablet 5 mg PO DAILY metoprolol succinate 25 mg tablet extended release 24 hr 25 mg PO DAILY calcium carbonate 500 mg calcium (1,250 mg) tablet 500 mg PO DAILY Adult Probiotic 3 billion cell capsule 3,000 mmu cells PO DAILY Rx Instructions: administer with a meal paroxetine HCl 10 mg tablet 10 mg PO DAILY triamcinolone acetonide 0.1 % cream 1 applic topical BID Xarelto 20 mg tablet 20 mg PO DAILY Rx Instructions: must administer with evening meal levothyroxine 75 mcg capsule 75 mcg PO .every other day levothyroxine 50 mcg capsule 50 mcg PO .every other day Discharge Orders: Discharge ED (Routine); Ordered 07/10/23 Ordered By: Denys Moe Referrals: Otis Torres DO [Primary Care Provider] - 1 week Patient Instructions: Hypertension (ED) Activity Restrictions/Additional Instructions: You are given 20 mg of hydralazine and 0.2 mg clonidine in the ER to lower your blood pressure. Please keep a blood pressure log. Please follow-up with your family practice physician within the next 7 days for further evaluation and treatment. Coding Level of Care Code ED [employer] for Radha Barr
[2023-07-10] MEDS: cloNIDine 0.1 mg Tablet 0.200000000000000011 MG PO (21:00)
[2023-07-10 21:02] VITALS: BP 187/113; PULSE 98; RESP 18; O2SAT 97
== END 2023-07-10 22:33 | disposition home or self-care (01) ==
PROVIDERS: Emergency Provider Emergency Medicine; PCP Electrodiagnostic Medicine
DX: I10 Essential (primary) hypertension (principal); E78.5 Hyperlipidemia, unspecified
CPT/HCPCS: 71045; 80053; 81003; 84443; 85025; 93005; 96374; 99285; J0360

== ENCOUNTER → 2023-08-16 14:26 | Outpatient (BNVA) | payer MEDICARE, OTHER, SELFPAY | PROVIDERS: PCP Electrodiagnostic Medicine; Visit Provider Podiatrist Foot & Ankle Surgery | DX: L84 Corns and callosities (principal); L60.3 Nail dystrophy; I73.9 Peripheral vascular disease, unspecified | CPT/HCPCS: 11055; 11721 ==

== ENCOUNTER → 2023-08-17 15:09 | Outpatient (BNVA) | payer MEDICARE, SELFPAY | PROVIDERS: PCP Electrodiagnostic Medicine; Visit Provider Dermatology | DX: L72.0 Epidermal cyst (principal); L21.8 Other seborrheic dermatitis; L91.8 Other hypertrophic disorders of the skin; L82.1 Other seborrheic keratosis; L57.8 Other skin changes due to chronic exposure to nonionizing radiation | CPT/HCPCS: 10060; 11200; 11900; 99204 ==

== ENCOUNTER → 2023-08-21 15:50 | Outpatient (BNVA) | payer MEDICARE, SELFPAY | PROVIDERS: PCP Electrodiagnostic Medicine; Visit Provider Dermatology | DX: L72.0 Epidermal cyst (principal); L30.4 Erythema intertrigo; L21.8 Other seborrheic dermatitis; R23.3 Spontaneous ecchymoses | CPT/HCPCS: 99214 ==

== ENCOUNTER → 2023-08-24 14:33 | Outpatient (BNVA) | payer MEDICARE, SELFPAY | PROVIDERS: PCP Electrodiagnostic Medicine; Visit Provider Dermatology | DX: L72.0 Epidermal cyst (principal); R23.3 Spontaneous ecchymoses | CPT/HCPCS: 99214 ==

== ENCOUNTER 2023-09-12 11:24 | Outpatient (CLI) | payer MEDICARE, SELFPAY ==
--- NOTE | 2023-09-12 11:09 | US_ITS ---
WS: [id number] ULTRASOUND LEFT BREAST HISTORY: ABNORMAL MAMMO COMPARISON: 01/31/2023 and 04/10/2017 TECHNIQUE: 2-D and Doppler. There is a hypoechoic subcutaneous soft tissue mass with irregular borders measures 0.3 x 0.6 x 0.4 c m. No increased vascularity. There is a track extending superficial. This corresponds to a previously described epidermoid or sebaceous cyst. This cyst is draining through the tract to the skin surface. US/US breast LT limited* [id number] IMPRESSION: BI-RADS: 2-Benign FOLLOW-UP: See Report Subcu and soft tissue mass is nonvascular and consistent with a draining sebace ous cyst as previously described on 01/31/2023. Sebaceous cyst has decreased in size since the prior study.
== END 2023-09-12 11:25 | disposition home or self-care (01) ==
PROVIDERS: PCP Electrodiagnostic Medicine; Visit Provider Electrodiagnostic Medicine
DX: R92.8 Other abnormal and inconclusive findings on diagnostic imaging of breast (principal); N60.02 Solitary cyst of left breast
CPT/HCPCS: 76642

== ENCOUNTER → 2023-10-02 11:25 | Outpatient (BNVA) | payer MEDICARE, SELFPAY | PROVIDERS: PCP Electrodiagnostic Medicine; Visit Provider Nurse Practitioner Family | DX: L72.0 Epidermal cyst (principal) | CPT/HCPCS: 99214 ==

== ENCOUNTER → 2024-02-14 15:14 | Outpatient (BNVA) | payer MEDICARE, OTHER, SELFPAY | PROVIDERS: PCP Electrodiagnostic Medicine; Visit Provider Podiatrist Foot & Ankle Surgery | DX: L84 Corns and callosities (principal); L60.3 Nail dystrophy; I73.9 Peripheral vascular disease, unspecified; L20.89 Other atopic dermatitis | CPT/HCPCS: 11055; 11721; 99213 ==

== ENCOUNTER → 2024-07-03 13:10 | Outpatient (BNVA) | payer MEDICARE, OTHER, SELFPAY | PROVIDERS: PCP Electrodiagnostic Medicine; Visit Provider Podiatrist Foot & Ankle Surgery | DX: I73.9 Peripheral vascular disease, unspecified (principal); L60.3 Nail dystrophy; L84 Corns and callosities | CPT/HCPCS: 11055; 11721 ==

== ENCOUNTER → 2024-09-18 15:54 | Outpatient (BNVA) | payer MEDICARE, OTHER, SELFPAY | PROVIDERS: PCP Electrodiagnostic Medicine; Visit Provider Nurse Practitioner Family | DX: L23.9 Allergic contact dermatitis, unspecified cause (principal); L30.4 Erythema intertrigo; L82.1 Other seborrheic keratosis | CPT/HCPCS: 99214 ==

== ENCOUNTER → 2024-10-02 13:44 | Outpatient (BNVA) | payer MEDICARE, OTHER, SELFPAY | PROVIDERS: PCP Electrodiagnostic Medicine; Visit Provider Podiatrist Foot & Ankle Surgery | DX: I73.9 Peripheral vascular disease, unspecified (principal); L60.3 Nail dystrophy; L84 Corns and callosities | CPT/HCPCS: 11055; 11721 ==

== ENCOUNTER 2024-10-29 05:00 | Outpatient (RCR) | payer MEDICARE, OTHER, SELFPAY | END 2024-11-28 23:59 | disposition home or self-care (01) | LOC: SPT 05:00 | PROVIDERS: Visit Provider Electrodiagnostic Medicine | DX: M75.01 Adhesive capsulitis of right shoulder (principal) | CPT/HCPCS: 97110; 97161 ==

== ENCOUNTER 2024-11-29 05:00 | Outpatient (RCR) | payer MEDICARE, OTHER, SELFPAY | END 2024-12-29 23:59 | disposition home or self-care (01) | LOC: SPT 05:00 | PROVIDERS: Visit Provider Electrodiagnostic Medicine | DX: M75.01 Adhesive capsulitis of right shoulder (principal); R53.1 Weakness | CPT/HCPCS: 97110 ==

== ENCOUNTER → 2024-12-24 15:28 | Outpatient (BNVA) | payer MEDICARE, OTHER, SELFPAY | PROVIDERS: Visit Provider Podiatrist Foot & Ankle Surgery | DX: I73.9 Peripheral vascular disease, unspecified (principal); L60.3 Nail dystrophy; L60.8 Other nail disorders; L84 Corns and callosities | CPT/HCPCS: 11055; 11721 ==

== ENCOUNTER 2024-12-30 05:00 | Outpatient (RCR) | payer MEDICARE, OTHER, SELFPAY | END 2025-01-20 10:02 | disposition home or self-care (01) | LOC: SPT 05:00 | PROVIDERS: PCP Electrodiagnostic Medicine; Visit Provider Electrodiagnostic Medicine | DX: M75.01 Adhesive capsulitis of right shoulder (principal) | CPT/HCPCS: 97110 ==

== ENCOUNTER 2025-01-03 07:56 | Outpatient (CLI) | payer MEDICARE, OTHER, SELFPAY ==
--- NOTE | 2025-01-03 08:04 | USCV_ITS ---
Yvette Goodman Age: 89 Gender: F : 1935 Exam Date: 01/03/2025 08:23 Ordering Phys: Otis Torres DO Technologist: SHEREE Exam Location: [facility] [place]ication: MURMUR BP: / HR: 73 Rhythm: Sinus Technical Quality: Adequate MEASUREMENTS (Male / Female) Normal Values 2D ECHO LV Diastolic Diameter PLAX 4.4 cm 4.2 - 5.9 / 3.9 - 5.3 cm IVS Diastolic Thickness 1.0 cm 0.6 - 1.0 / 0.6 - 0.9 cm IVS Systolic Thickness 1.4 cm LVPW Diastolic Thickness 1.2 cm 0.6 - 1.0 / 0.6 - 0.9 cm LVPW Systolic Thickness 1.3 cm LVOT Diameter 2.0 cm LV Ejection Fraction 2D Teich 57.7 % LV Ejection Fraction MOD 4C 70.6 % LV Ejection Fraction MOD 2C 67.1 % LV Ejection Fraction 2C AL 66.4 % LA Diameter 3.8 cm RA Systolic Volume 4C AL 34.9 ml RA Systolic Volume 4C MOD 33.0 ml LA Sys Volume AL 33.6 cm cubed LA Sys Volume Index AL 17.7 cm cubed/m squared Aorta at Sinotubular Diameter 2.2 cm M-MODE LA Ao Ratio MM 1.6 AV Cusp Separation MM 1.3 cm DOPPLER AV Peak Velocity 151.0 cm/s LVOT Peak Velocity 111.0 cm/s AV Area Cont Eq vti 2.2 cm squared AV Area Cont Eq pk 2.2 cm squared MV Peak Velocity 139.0 cm/s MV Area PHT 4.0 cm squared Mitral E to A Ratio 0.6 TR Peak Velocity 82.0 cm/s TR Peak Gradient 2.7 mmHg TV Peak E Velocity 88.0 cm/s PV Peak Velocity 95.0 cm/s FINDINGS Left Ventricle Normal left ventricular size and systolic function, EF 60-65%. No regional wall motion abnormalities. Grade 1 diastolic dysfunction Right Ventricle Normal in size and function Right Atrium Normal in size Left Atrium Normal in size Mitral Valve Mild mitral annular calcification. Mild mitral valve regurgitation. Aortic Valve Structurally normal aortic valve. No aortic valve stenosis. Tricuspid Valve Insufficient TR jet to calculate RVSP Pulmonic Valve Not well visualized Pericardium Normal Aorta Normal in size IVC Not well visualized CONCLUSIONS LV systolic function is normal with EF of 60-65% Grade 1 diastolic dysfunction Mild mitral valve regurgitation. Bam Posada MD (Electronically Signed) Final Date: 12 January 2025 13:16 S
== END 2025-01-03 07:57 | disposition home or self-care (01) ==
LOC: RAD 07:57
PROVIDERS: PCP Electrodiagnostic Medicine; Visit Provider Electrodiagnostic Medicine
DX: R01.1 Cardiac murmur, unspecified (principal); R93.1 Abnormal findings on diagnostic imaging of heart and coronary circulation; I34.81 Nonrheumatic mitral (valve) annulus calcification; I34.0 Nonrheumatic mitral (valve) insufficiency
CPT/HCPCS: 93306

== ENCOUNTER → 2025-04-01 14:03 | Outpatient (BNVA) | payer MEDICARE, OTHER, SELFPAY | PROVIDERS: PCP Electrodiagnostic Medicine; Visit Provider Podiatrist Foot & Ankle Surgery | DX: I73.9 Peripheral vascular disease, unspecified (principal); L60.3 Nail dystrophy; L84 Corns and callosities; L60.8 Other nail disorders | CPT/HCPCS: 11055; 11721 ==